=== PATIENT | male | born 1960 | race Caucasian/White ===

== ENCOUNTER → 2018-08-27 | Day surgery (SDC) | payer OTHER ==
[~2018-08-27] MED LIST: ALDACTONE100 MG PO; FENTANYL CITRATE/PF 100MCG/2 ML INJ ONE; FUROSEMIDE40 MG PO; MIDAZOLAM HCL 2 MG/2 ML VIAL ONE; PROPOFOL IV EMULSION 10 MG/ML 50 ML VIAL ONE; PROPRANOLOL HCL40 MG PO
--- OUTSIDE RECORDS SUMMARY | 2018-08-27 07:39 | XMS REPORT | Clinical Summary ---
Author Author [place] [facility] Address Unknown Phone Unavailable Care Team Providers Care Cheese Pancake Roller Name Role Phone Edgar Le MD PCP Allergies No Known Allergies Medications End Date Status Medication Sig Dispensed Refills Start Date Active amLODIPine (NORVASC) 5 mg TK 1 T PO QD 0 tablet 7 Active Problems Not on file Encounters Care Team Description Date Type Specialty Malcolm Botello MD Canceled (Insurance Denied/Termed) 05/31/2018 Hospital Radiology Encounter Malcolm Botello MD Other ascites (Primary Dx) 05/27/2018 Transcribe Access Orders after 08/26/2017 Family History Medical History Relation Name Comments Hyperlipidemia Father Hypertension Father Hyperlipidemia Mother Hypertension Mother Relation Name Status Comments Father Alive Mother Alive Social History Date Tobacco Use Types Packs/Day Years Used Never Smoker Smokeless Tobacco: Never Used Alcohol Use Drinks/Week oz/Week Comments Yes occ Sex Assigned at Date Recorded Not on file Industry Job Start Date Occupation Not on file Not on file Not on file Travel End Travel History Travel Start No recent travel history available. Last Filed Vital Signs Not on file Plan of Treatment Health Maintenance Due Date Last Done Comments COLON CANCER SCREENING 2012 SHINGLES VACCINES (#1) 2012 INFLUENZA VACCINE 12/12/2018 Results Not on fileafter 08/26/2017 Insurance Payer Benefit Subscriber ID Type Phone Address Plan / Group AMER NATL AMER NATL xxxxxxxxx Commercial Advance Directives Patient has advance care planning documents on file. For more information, aiyana bryan contact: Ramón Fagan [address] [place] [address]
--- OUTSIDE RECORDS SUMMARY | 2018-08-27 07:39 | XMS REPORT ---
Author Author [facility] Address Unknown Phone Unavailable Care Team Providers Care Strings Teacher Name Role Phone Unavailable Unavailable Payers Payer Name Policy Type Policy Number Effective Date Expiration Date Problems This patient has no known problems. Allergies, Adverse Reactions, Alerts Allergy Name Allergy Type Status Severity Reaction(s) Onset Date Inactive Date Treating Clinician Comments No Known Allergies DA Active U 2018-07-23 00:00:00 No Known Allergies DA Active U 2018-05-31 00:00:00 Medications This patient has no known medications. Results Test Description Test Time Test Comments Text Results Atomic Results Result Comments BODY FLUID CELL CT/DIFF 2018-07-25 10:55:00 FLUID SOURCE (test code=SOURCEFL) ASCITES FLD FLUID COLOR (test code=COLFL) YELLOW COLORLESS FLUID APPEARANCE (test code=APPFL) HAZY FLUID WBC AUTO (test code=WBCFLA) 730 cells/uL FLUID RBC AUTO (test code=RBCFLA) 3000 cells/uL FLUID TOTAL CELLS (test code=TCFL) 779 cells/uL >0 Fluid WBC RBC PMN% MN%Type cells/uL cells/uL CSF (0-5) n/a (2+/-4) (90+/-20)Peritoneal n/a n/a n/a n/aPleural n/a n/a n/a n/aSynovial <200 n/a <25% <75% CSF (0-30) n/a (4+/-4) (90+/-20) FLUID POLY (test code=POLYFL) 13.0 % FLUID LYMPHOCYTE (test code=LYMPHFL) 61.0 % FLUID MACROPHAGE (test code=MACFL) 26.0 % TOTAL CELLS COUNTED ON DIFF (test code=TOTCELLFL) 100 cells REVIEWED BY (test code=REVIEW) FEDERICO DAMON PATHOLOGIST SPECIMEN COMMENTS: ASCITES FLUIDBODY FLUID [id number] 10:55:00* Test Item Value Reference Range Comments BODY FLUID ALBUMIN (test code=ALBF) 1.8 gram/dL SPECIMEN COMMENTS: ASCITES FLUIDASCITES FLD [id number] 10:55:00* Test Item Value Reference Range Comments ASCITES FLD PROTEIN (test code=PROTAS) 3.0 gram/dL SPECIMEN COMMENTS: ASCITES FLUID- SP PARACENTESIS W [id number] 16:10:00 Name: KIMO STEELE [facility] SP : 1960 Age/S: 58 / M [address] Unit #: [id number] Loc: [place] [address] Phys: Dylon Harrington MD Acct: [id number] Dis Date: Status: REG [facility] PHONE #: Exam Date: 07/23/2018 1200 FAX #: [phone] Reason: EXAMS: CPT CODE: [id number] SP PARACENTESIS W IMAGE [id number] Fluoro Time: 0 DAP (Gy m2 ): 0 Air Kerma (mGy): 0 REASON FOR EXAM: Ascites EXAM ORDER DATE: 07/23/2018 11:25 AM PROCEDURE: Ultrasound guided paracentesis CPT code: 83578, 12963 FINDINGS: After informed consent was obtained, the patient was brought to special procedures. The abdomen was prepped and draped in the usual fashion. All e lements of maximal sterile barrier technique were followed. Diagnostic ult rasound showed mild ascites. Images of the ascites was submitted to PACS. 2% local lidocaine was given for local anesthetic. Under real time ultra sound guidance, an 18 gauge needle was advanced into the abdomen. A guide wire was inserted and an 8 Slovak drainage catheter was inserted in the ab dominal cavity. 2.2 L of fluid obtained. The catheter was removed and hemo stasis obtained. Samples were submitted for lab analysis. ME DICATIONS: None COMPLICATIONS: None. Blood loss: les s than 5cc. IMPRESSION: 2.2 L of fluid removed from the abdomen. at 1610 Reported and signed by: Dylon Harrington M.D. CC: Munir Botello; Dylon Harrington MD Technologist: Twyla WRIGHT(R) Trnscb Date/Time: 07/23/2018 (1610) CaseyL Orig Print D/T: S: 07/23/2018 (4469) PAGE 1 Signed Report BODY FLUID CELL CT/DIFF 2018-07-23 15:04:00* Test Item Value Reference Range Comments FLUID SOURCE (test code=SOURCEFL) ASCITES FLD FLUID COLOR (test code=COLFL) YELLOW COLORLESS FLUID APPEARANCE (test code=APPFL) HAZY FLUID WBC AUTO (test code=WBCFLA) 730 cells/uL FLUID RBC AUTO (test code=RBCFLA) 3000 cells/uL FLUID TOTAL CELLS (test code=TCFL) 779 cells/uL >0 Fluid WBC RBC PMN% MN%Type cells/uL cells/uL CSF (0-5) n/a (2+/-4) (90+/-20)Peritoneal n/a n/a n/a n/aPleural n/a n/a n/a n/aSynovial <200 n/a <25% <75% CSF (0-30) n/a (4+/-4) (90+/-20) FLUID POLY (test code=POLYFL) 13.0 % FLUID LYMPHOCYTE (test code=LYMPHFL) 61.0 % FLUID MACROPHAGE (test code=MACFL) 26.0 % TOTAL CELLS COUNTED ON DIFF (test code=TOTCELLFL) 100 cells REVIEWED BY (test code=REVIEW) PATHOLOGIST SPECIMEN COMMENTS: ASCITES FLUIDBODY FLUID [id number] 15:04:00* Test Item Value Reference Range Comments BODY FLUID ALBUMIN (test code=ALBF) 1.8 gram/dL SPECIMEN COMMENTS: ASCITES FLUIDASCITES FLD [id number] 15:04:00* Test Item Value Reference Range Comments ASCITES FLD PROTEIN (test code=PROTAS) 3.0 gram/dL SPECIMEN COMMENTS: ASCITES FLUIDBODY FLUID CELL [id number] 14:46:00* Test Item Value Reference Range Comments FLUID SOURCE (test code=SOURCEFL) ASCITES FLD FLUID COLOR (test code=COLFL) YELLOW COLORLESS FLUID APPEARANCE (test code=APPFL) HAZY FLUID WBC AUTO (test code=WBCFLA) 730 cells/uL FLUID RBC AUTO (test code=RBCFLA) 3000 cells/uL FLUID TOTAL CELLS (test code=TCFL) 779 cells/uL >0 Fluid WBC RBC PMN% MN%Type cells/uL cells/uL CSF (0-5) n/a (2+/-4) (90+/-20)Peritoneal n/a n/a n/a n/aPleural n/a n/a n/a n/aSynovial <200 n/a <25% <75% CSF (0-30) n/a (4+/-4) (90+/-20) TOTAL CELLS COUNTED ON DIFF (test code=TOTCELLFL) cells REVIEWED BY (test code=REVIEW) PATHOLOGIST SPECIMEN COMMENTS: ASCITES FLUIDBODY FLUID [id number] 14:46:00* Test Item Value Reference Range Comments BODY FLUID ALBUMIN (test code=ALBF) 1.8 gram/dL SPECIMEN COMMENTS: ASCITES FLUIDASCITES FLD [id number] 14:46:00* Test Item Value Reference Range Comments ASCITES FLD PROTEIN (test code=PROTAS) 3.0 gram/dL SPECIMEN COMMENTS: ASCITES [id number] 14:34:00* Test Item Value Reference Range Comments GLUBED (test code=GLUBED) 96 mg/dL 74-106 Performed by certified continuous drier operator at [facility] BODY FLUID CELL [id number] 13:50:00* Test Item Value Reference Range Comments FLUID SOURCE (test code=SOURCEFL) ASCITES FLD FLUID COLOR (test code=COLFL) YELLOW COLORLESS FLUID APPEARANCE (test code=APPFL) HAZY FLUID WBC AUTO (test code=WBCFLA) 730 cells/uL FLUID RBC AUTO (test code=RBCFLA) 3000 cells/uL FLUID TOTAL CELLS (test code=TCFL) 779 cells/uL >0 Fluid WBC RBC PMN% MN%Type cells/uL cells/uL CSF (0-5) n/a (2+/-4) (90+/-20)Peritoneal n/a n/a n/a n/aPleural n/a n/a n/a n/aSynovial <200 n/a <25% <75% CSF (0-30) n/a (4+/-4) (90+/-20) TOTAL CELLS COUNTED ON DIFF (test code=TOTCELLFL) cells REVIEWED BY (test code=REVIEW) PATHOLOGIST SPECIMEN COMMENTS: ASCITES FLUIDBODY FLUID [id number] 13:50:00* Test Item Value Reference Range Comments BODY FLUID ALBUMIN (test code=ALBF) gram/dL SPECIMEN COMMENTS: ASCITES FLUIDASCITES FLD [id number] 13:50:00* Test Item Value Reference Range Comments ASCITES FLD PROTEIN (test code=PROTAS) 3.0 gram/dL SPECIMEN COMMENTS: ASCITES FLUIDBODY FLUID CELL [id number] 13:45:00* Test Item Value Reference Range Comments FLUID SOURCE (test code=SOURCEFL) ASCITES FLD FLUID COLOR (test code=COLFL) YELLOW COLORLESS FLUID APPEARANCE (test code=APPFL) HAZY FLUID WBC AUTO (test code=WBCFLA) 730 cells/uL FLUID RBC AUTO (test code=RBCFLA) 3000 cells/uL FLUID TOTAL CELLS (test code=TCFL) 779 cells/uL >0 Fluid WBC RBC PMN% MN%Type cells/uL cells/uL CSF (0-5) n/a (2+/-4) (90+/-20)Peritoneal n/a n/a n/a n/aPleural n/a n/a n/a n/aSynovial <200 n/a <25% <75% CSF (0-30) n/a (4+/-4) (90+/-20) TOTAL CELLS COUNTED ON DIFF (test code=TOTCELLFL) cells REVIEWED BY (test code=REVIEW) PATHOLOGIST SPECIMEN COMMENTS: ASCITES FLUIDBODY FLUID [id number] 13:45:00* Test Item Value Reference Range Comments BODY FLUID ALBUMIN (test code=ALBF) gram/dL SPECIMEN COMMENTS: ASCITES FLUIDASCITES FLD [id number] 13:45:00* Test Item Value Reference Range Comments ASCITES FLD PROTEIN (test code=PROTAS) gram/dL SPECIMEN COMMENTS: ASCITES FLUIDBODY FLUID CELL [id number] 13:44:00* Test Item Value Reference Range Comments FLUID SOURCE (test code=SOURCEFL) FLUID COLOR (test code=COLFL) COLORLESS FLUID APPEARANCE (test code=APPFL) FLUID WBC (test code=WBCFL) per mm3 0-150 FLUID WBC AUTO (test code=WBCFLA) 730 cells/uL FLUID RBC (test code=RBCFL) per mm3 0-50 FLUID RBC AUTO (test code=RBCFLA) 3000 cells/uL FLUID TOTAL CELLS (test code=TCFL) 779 cells/uL >0 Fluid WBC RBC PMN% MN%Type cells/uL cells/uL CSF (0-5) n/a (2+/-4) (90+/-20)Peritoneal n/a n/a n/a n/aPleural n/a n/a n/a n/aSynovial <200 n/a <25% <75% CSF (0-30) n/a (4+/-4) (90+/-20) TOTAL CELLS COUNTED ON DIFF (test code=TOTCELLFL) cells REVIEWED BY (test code=REVIEW) PATHOLOGIST SPECIMEN COMMENTS: ASCITES FLUIDBODY FLUID [id number] 13:44:00* Test Item Value Reference Range Comments BODY FLUID ALBUMIN (test code=ALBF) gram/dL SPECIMEN COMMENTS: ASCITES FLUIDASCITES FLD [id number] 13:44:00* Test Item Value Reference Range Comments ASCITES FLD PROTEIN (test code=PROTAS) gram/dL SPECIMEN COMMENTS: ASCITES FLUIDPROTHROMBIN [id number] 08:12:00* Test Item Value Reference Range Comments PROTHROMBIN TIME PATIENT (test code=PTP) 12.9 seconds 9.0-14.0 INTERNATIONAL NORMAL RATIO (test code=INR) 1.1 0.8-1.2 The therapeutic range for oral anticoagulant therapy formost indications is an international normalized ratio (INR)of between 2.0 and 3.0. The recommended therapeutic INRrange for various clinical situations is listed below: Clinical Situation INR range Pulmonary e mbolism treatment (2.0-3.0)Venous thrombosis treatmentVenous thrombosis prophylaxis (high risk surgery)Prevention of systemic embolism from: Acute myocardial infarction Valvular heart disease Atrial fibrillation Mechanical prosthetic heart valves (2.5-3.5) THROMBOPLASTIN TIME [id number] 08:12:00* Test Item Value Reference Range Comments THROMBOPLASTIN TIME PARTIAL (test code=PTT) 29.6 seconds 25.0-36.5 PLATELET [id number] 08:03:00* Test Item Value Reference Range Comments PLATELET COUNT (test code=PLT) 198 K/mm3 150-[id number] 09:25:00* Test Item Value Reference Range Comments FLUID SOURCE (test code=SOURCEFL) ASCITES FLD FLUID COLOR (test code=COLFL) YELLOW COLORLESS FLUID APPEARANCE (test code=APPFL) CLEAR FLUID WBC AUTO (test code=WBCFLA) 288 cells/uL FLUID RBC AUTO (test code=RBCFLA) 0 cells/uL FLUID TOTAL CELLS (test code=TCFL) 293 cells/uL >0 Fluid WBC RBC PMN% MN%Type cells/uL cells/uL CSF (0-5) n/a (2+/-4) (90+/-20)Peritoneal n/a n/a n/a n/aPleural n/a n/a n/a n/aSynovial <200 n/a <25% <75% CSF (0-30) n/a (4+/-4) (90+/-20) FLUID POLY (test code=POLYFL) 16.4 % FLUID LYMPHOCYTE (test code=LYMPHFL) 59.1 % FLUID EOSINOPHIL (test code=EOSFL) 0.0 % FLUID BASOPHIL (test code=BASOFL) 0.0 % FLUID MACROPHAGE (test code=MACFL) 19.1 % FLUID OTHER CELL (test code=OTHERFL) 5.4 % TOTAL CELLS COUNTED ON DIFF (test code=TOTCELLFL) 110 cells REVIEWED BY (test code=REVIEW) PATHOLOGIST Reviewed by Pathologist, REVIEWED BY FEDERICO DICKINSON M.D.06/04/18REVIEWED SPECIMEN COMMENTS: ASCITES FLUIDFLUID [id number] 09:25:00* Test Item Value Reference Range Comments FLUID PH (test code=PHFL) 7.0 6.8-7.6 SPECIMEN COMMENTS: ASCITES FLUIDFLUID [id number] 09:25:00* Test Item Value Reference Range Comments FLUID GLUCOSE (test code=GLUFL) 115 mg/dL SPECIMEN COMMENTS: ASCITES FLUIDFLUID [id number] 09:25:00* Test Item Value Reference Range Comments FLUID PROTEIN (test code=PROTFL) 1.5 gram/dL SPECIMEN COMMENTS: ASCITES FLUIDFLUID [id number] 09:25:00* Test Item Value Reference Range Comments FLUID LDH (test code=LDHFL) 39 IUnit/L SPECIMEN COMMENTS: ASCITES FLUIDBODY FLUID CELL [id number] 16:42:00* Test Item Value Reference Range Comments FLUID SOURCE (test code=SOURCEFL) ASCITES FLD FLUID COLOR (test code=COLFL) YELLOW COLORLESS FLUID APPEARANCE (test code=APPFL) CLEAR FLUID WBC AUTO (test code=WBCFLA) 288 cells/uL FLUID RBC AUTO (test code=RBCFLA) 0 cells/uL FLUID TOTAL CELLS (test code=TCFL) 293 cells/uL >0 Fluid WBC RBC PMN% MN%Type cells/uL cells/uL CSF (0-5) n/a (2+/-4) (90+/-20)Peritoneal n/a n/a n/a n/aPleural n/a n/a n/a n/aSynovial <200 n/a <25% <75% CSF (0-30) n/a (4+/-4) (90+/-20) FLUID POLY (test code=POLYFL) 16.4 % FLUID LYMPHOCYTE (test code=LYMPHFL) 59.1 % FLUID EOSINOPHIL (test code=EOSFL) 0.0 % FLUID BASOPHIL (test code=BASOFL) 0.0 % FLUID MACROPHAGE (test code=MACFL) 19.1 % FLUID OTHER CELL (test code=OTHERFL) 5.4 % TOTAL CELLS COUNTED ON DIFF (test code=TOTCELLFL) 110 cells REVIEWED BY (test code=REVIEW) PATHOLOGIST SPECIMEN COMMENTS: ASCITES FLUIDFLUID [id number] 16:42:00* Test Item Value Reference Range Comments FLUID PH (test code=PHFL) 7.0 6.8-7.6 SPECIMEN COMMENTS: ASCITES FLUIDFLUID [id number] 16:42:00* Test Item Value Reference Range Comments FLUID GLUCOSE (test code=GLUFL) 115 mg/dL SPECIMEN COMMENTS: ASCITES FLUIDFLUID [id number] 16:42:00* Test Item Value Reference Range Comments FLUID PROTEIN (test code=PROTFL) 1.5 gram/dL SPECIMEN COMMENTS: ASCITES FLUIDFLUID [id number] 16:42:00* Test Item Value Reference Range Comments FLUID LDH (test code=LDHFL) 39 IUnit/L SPECIMEN COMMENTS: ASCITES FLUIDBODY FLUID CELL [id number] 16:36:00* Test Item Value Reference Range Comments FLUID SOURCE (test code=SOURCEFL) ASCITES FLD FLUID COLOR (test code=COLFL) YELLOW COLORLESS FLUID APPEARANCE (test code=APPFL) CLEAR FLUID WBC AUTO (test code=WBCFLA) 288 cells/uL FLUID RBC AUTO (test code=RBCFLA) 0 cells/uL FLUID TOTAL CELLS (test code=TCFL) 293 cells/uL >0 Fluid WBC RBC PMN% MN%Type cells/uL cells/uL CSF (0-5) n/a (2+/-4) (90+/-20)Peritoneal n/a n/a n/a n/aPleural n/a n/a n/a n/aSynovial <200 n/a <25% <75% CSF (0-30) n/a (4+/-4) (90+/-20) FLUID POLY (test code=POLYFL) 16.4 % FLUID LYMPHOCYTE (test code=LYMPHFL) 59.1 % FLUID EOSINOPHIL (test code=EOSFL) 0.0 % FLUID BASOPHIL (test code=BASOFL) 0.0 % FLUID MACROPHAGE (test code=MACFL) 19.1 % FLUID OTHER CELL (test code=OTHERFL) 5.4 % TOTAL CELLS COUNTED ON DIFF (test code=TOTCELLFL) cells REVIEWED BY (test code=REVIEW) PATHOLOGIST SPECIMEN COMMENTS: ASCITES FLUIDFLUID [id number] 16:36:00* Test Item Value Reference Range Comments FLUID PH (test code=PHFL) 7.0 6.8-7.6 SPECIMEN COMMENTS: ASCITES FLUIDFLUID [id number] 16:36:00* Test Item Value Reference Range Comments FLUID GLUCOSE (test code=GLUFL) 115 mg/dL SPECIMEN COMMENTS: ASCITES FLUIDFLUID [id number] 16:36:00* Test Item Value Reference Range Comments FLUID PROTEIN (test code=PROTFL) 1.5 gram/dL SPECIMEN COMMENTS: ASCITES FLUIDFLUID [id number] 16:36:00* Test Item Value Reference Range Comments FLUID LDH (test code=LDHFL) 39 IUnit/L SPECIMEN COMMENTS: ASCITES FLUID- SP PARACENTESIS W [id number] 14:18:00 Name: KIMO STEELE [facility] SP : 1960 Age/S: 57 / M [address] [facility] Unit #: [id number] Loc: [place] [address] Phys: Ruben Harrison MD Acct: [id number] Di s Date: Status: REG ARC PHONE #: Exam Date: 06/03/2018 1023 FAX #: [phone] Reason: EXAMS: CPT CODE: [id number] SP PARACENTESIS W IMAGE [id number] Fluoro Time: 0 DAP (Gy m2 ): 0 Air Kerma (mGy): 0 REASON FOR EXAM: Ascites EXAM ORDER DATE: 06/03/2018 9:54 AM PROCEDURE: Ultrasound guided paracentesis CPT code: 08457, 46827 FINDINGS: After informed consent was obtained, the patient was brought to [facility]. The abdomen was prepped and draped in the usual fashion. All el ements of maximal sterile barrier technique were followed. Diagnostic ultr asound showed mild ascites. Images of the ascites was submitted to PACS. 2% local lidocaine was given for local anesthetic. Under real time ultras ound guidance, an 18 gauge needle was advanced into the abdomen. A guide w dez was inserted and an 8 Slovak drainage catheter was inserted in the abd ominal cavity. 5.9 L of fluid obtained. The catheter was removed and hemos tasis obtained. Samples were submitted for lab analysis. MED ICATIONS: None COMPLICATIONS: None. Blood loss: less than 5cc. IMPRESSION: 5.9 L of fluid removed from the abdomen. Electronically Signed by Roopa Shepherd 06/03/2018 at 1418 Reported and signed by: Dylon Harrington M.D. CC: Malcolm Botello; Sivakumar Harrison MD Technologist: VIN WRIGHT(R) Trnscb Date/Time: 06/03/2018 (5135) CaseyL Orig Print D/T: S: 06/03/2018 (7024) PAGE 1 Signed Report BODY FLUID CELL CT/DIFF 2018-06-03 13:44:00* Test Item Value Reference Range Comments FLUID SOURCE (test code=SOURCEFL) ASCITES FLD FLUID COLOR (test code=COLFL) YELLOW COLORLESS FLUID APPEARANCE (test code=APPFL) CLEAR FLUID WBC AUTO (test code=WBCFLA) 288 cells/uL FLUID RBC AUTO (test code=RBCFLA) 0 cells/uL FLUID TOTAL CELLS (test code=TCFL) 293 cells/uL >0 Fluid WBC RBC PMN% MN%Type cells/uL cells/uL CSF (0-5) n/a (2+/-4) (90+/-20)Peritoneal n/a n/a n/a n/aPleural n/a n/a n/a n/aSynovial <200 n/a <25% <75% CSF (0-30) n/a (4+/-4) (90+/-20) TOTAL CELLS COUNTED ON DIFF (test code=TOTCELLFL) cells REVIEWED BY (test code=REVIEW) PATHOLOGIST SPECIMEN COMMENTS: ASCITES FLUIDFLUID [id number] 13:44:00* Test Item Value Reference Range Comments FLUID PH (test code=PHFL) 7.0 6.8-7.6 SPECIMEN COMMENTS: ASCITES FLUIDFLUID [id number] 13:44:00* Test Item Value Reference Range Comments FLUID GLUCOSE (test code=GLUFL) 115 mg/dL SPECIMEN COMMENTS: ASCITES FLUIDFLUID [id number] 13:44:00* Test Item Value Reference Range Comments FLUID PROTEIN (test code=PROTFL) 1.5 gram/dL SPECIMEN COMMENTS: ASCITES FLUIDFLUID [id number] 13:44:00* Test Item Value Reference Range Comments FLUID LDH (test code=LDHFL) 39 IUnit/L SPECIMEN COMMENTS: ASCITES FLUIDBODY FLUID CELL [id number] 13:39:00* Test Item Value Reference Range Comments FLUID SOURCE (test code=SOURCEFL) ASCITES FLD FLUID COLOR (test code=COLFL) YELLOW COLORLESS FLUID APPEARANCE (test code=APPFL) CLEAR FLUID WBC AUTO (test code=WBCFLA) 288 cells/uL FLUID RBC AUTO (test code=RBCFLA) 0 cells/uL FLUID TOTAL CELLS (test code=TCFL) 293 cells/uL >0 Fluid WBC RBC PMN% MN%Type cells/uL cells/uL CSF (0-5) n/a (2+/-4) (90+/-20)Peritoneal n/a n/a n/a n/aPleural n/a n/a n/a n/aSynovial <200 n/a <25% <75% CSF (0-30) n/a (4+/-4) (90+/-20) TOTAL CELLS COUNTED ON DIFF (test code=TOTCELLFL) cells REVIEWED BY (test code=REVIEW) PATHOLOGIST SPECIMEN COMMENTS: ASCITES FLUIDFLUID [id number] 13:39:00* Test Item Value Reference Range Comments FLUID PH (test code=PHFL) 7.0 6.8-7.6 SPECIMEN COMMENTS: ASCITES FLUIDFLUID [id number] 13:39:00* Test Item Value Reference Range Comments FLUID GLUCOSE (test code=GLUFL) 115 mg/dL SPECIMEN COMMENTS: ASCITES FLUIDFLUID [id number] 13:39:00* Test Item Value Reference Range Comments FLUID PROTEIN (test code=PROTFL) gram/dL SPECIMEN COMMENTS: ASCITES FLUIDFLUID [id number] 13:39:00* Test Item Value Reference Range Comments FLUID LDH (test code=LDHFL) IUnit/L SPECIMEN COMMENTS: ASCITES FLUIDBODY FLUID CELL [id number] 13:33:00* Test Item Value Reference Range Comments FLUID SOURCE (test code=SOURCEFL) ASCITES FLD FLUID COLOR (test code=COLFL) YELLOW COLORLESS FLUID APPEARANCE (test code=APPFL) CLEAR FLUID WBC AUTO (test code=WBCFLA) 288 cells/uL FLUID RBC AUTO (test code=RBCFLA) 0 cells/uL FLUID TOTAL CELLS (test code=TCFL) 293 cells/uL >0 Fluid WBC RBC PMN% MN%Type cells/uL cells/uL CSF (0-5) n/a (2+/-4) (90+/-20)Peritoneal n/a n/a n/a n/aPleural n/a n/a n/a n/aSynovial <200 n/a <25% <75% CSF (0-30) n/a (4+/-4) (90+/-20) TOTAL CELLS COUNTED ON DIFF (test code=TOTCELLFL) cells REVIEWED BY (test code=REVIEW) PATHOLOGIST SPECIMEN COMMENTS: ASCITES FLUIDFLUID [id number] 13:33:00* Test Item Value Reference Range Comments FLUID PH (test code=PHFL) 7.0 6.8-7.6 SPECIMEN COMMENTS: ASCITES FLUIDFLUID [id number] 13:33:00* Test Item Value Reference Range Comments FLUID GLUCOSE (test code=GLUFL) mg/dL SPECIMEN COMMENTS: ASCITES FLUIDFLUID [id number] 13:33:00* Test Item Value Reference Range Comments FLUID PROTEIN (test code=PROTFL) gram/dL SPECIMEN COMMENTS: ASCITES FLUIDFLUID [id number] 13:33:00* Test Item Value Reference Range Comments FLUID LDH (test code=LDHFL) IUnit/L SPECIMEN COMMENTS: ASCITES FLUIDBODY FLUID CELL [id number] 13:31:00* Test Item Value Reference Range Comments FLUID SOURCE (test code=SOURCEFL) FLUID COLOR (test code=COLFL) COLORLESS FLUID APPEARANCE (test code=APPFL) FLUID WBC (test code=WBCFL) per mm3 0-150 FLUID WBC AUTO (test code=WBCFLA) 288 cells/uL FLUID RBC (test code=RBCFL) per mm3 0-50 FLUID RBC AUTO (test code=RBCFLA) 0 cells/uL FLUID TOTAL CELLS (test code=TCFL) 293 cells/uL >0 Fluid WBC RBC PMN% MN%Type cells/uL cells/uL CSF (0-5) n/a (2+/-4) (90+/-20)Peritoneal n/a n/a n/a n/aPleural n/a n/a n/a n/aSynovial <200 n/a <25% <75% CSF (0-30) n/a (4+/-4) (90+/-20) TOTAL CELLS COUNTED ON DIFF (test code=TOTCELLFL) cells REVIEWED BY (test code=REVIEW) PATHOLOGIST SPECIMEN COMMENTS: ASCITES FLUIDFLUID [id number] 13:31:00* Test Item Value Reference Range Comments FLUID PH (test code=PHFL) 6.8-7.6 SPECIMEN COMMENTS: ASCITES FLUIDFLUID [id number] 13:31:00* Test Item Value Reference Range Comments FLUID GLUCOSE (test code=GLUFL) mg/dL SPECIMEN COMMENTS: ASCITES FLUIDFLUID [id number] 13:31:00* Test Item Value Reference Range Comments FLUID PROTEIN (test code=PROTFL) gram/dL SPECIMEN COMMENTS: ASCITES FLUIDFLUID [id number] 13:31:00* Test Item Value Reference Range Comments FLUID LDH (test code=LDHFL) IUnit/L SPECIMEN COMMENTS: ASCITES FLUIDPROTHROMBIN [id number] 12:52:00* Test Item Value Reference Range Comments PROTHROMBIN TIME PATIENT (test code=PTP) 13.3 seconds 9.0-14.0 INTERNATIONAL NORMAL RATIO (test code=INR) 1.1 0.8-1.2 The therapeutic range for oral anticoagulant therapy formost indications is an international normalized ratio (INR)of between 2.0 and 3.0. The recommended therapeutic INRrange for various clinical situations is listed below: Clinical Situation INR range Pulmonary e mbolism treatment (2.0-3.0)Venous thrombosis treatmentVenous thrombosis prophylaxis (high risk surgery)Prevention of systemic embolism from: Acute myocardial infarction Valvular heart disease Atrial fibrillation Mechanical prosthetic heart valves (2.5-3.5) THROMBOPLASTIN TIME [id number] 12:52:00* Test Item Value Reference Range Comments THROMBOPLASTIN TIME PARTIAL (test code=PTT) 29.6 seconds 25.0-36.5 PLATELET [id number] 12:40:00* Test Item Value Reference Range Comments PLATELET COUNT (test code=PLT) 250 K/mm3 150-450 - US ABDOMEN [id number] 10:13:00 Name: KIMO STEELE Pt. [facility] : 1960 Age/S: 57 / M [address] [facility] Unit #: [id number] Loc: [place] [address] Phys: Maclolm Botello MD Acct: [id number] Dis Date: Status: REG CLI PHONE #: [phone] Exam Date: 05/31/2018 0958 FAX #: [phone] Reason: R18.8 EXAMS: CPT CODE: [id number] US ABDOMEN COMPLETE 04119 HISTORY: R18.8. COMPARISON: None available. The hepatic parenchyma is hyperechogenic and slightly nodular and shrunken which limits evaluation for intrahepatic mass however no discrete lesions this may suggest cirrhosis. The liver measured 10.8 cm in length. No intra or extrahepatic biliary ductal dilatation. CBD is normal at 2.8 mm. Main portal vein is patent. To and fro flow noted within the main portal vein. Gallbladder is without gallstones. No pericholecystic fluid or wall thickening. Small ascites. Kidneys are free from hydronephrosis and calyceal stones. Normal echogenicity and texture. Right kidney measuring 11.4 cm in length. Left kidney measured 12 cm in length. Spleen is not enlarged at 13.4 cm in length. Visualized portions of the IVC, aorta and pancreas are normal however imaged incompletely. IMPRESSION: Small nodular shrunken cirrhotic liver without discrete mass with small ascites. No splenomegaly. No gallstones. To and fro flow within the main portal vein. at 1013 Reported and signed by: Darinel Arreola M.D. CC: Malcolm Botello Technologist: Jessica Patel(S)(ARRT) Trnscb Date/Time: 05/31/2018 (1013) [email or web address] Orig Print D/T: S: 05/31/2018 (1016) Probe: PAGE 1 Signed Report
[2018-08-27 14:25] VITALS: BP 158/87
== END | disposition home or self-care (01) ==
LOC: OR 07:36
PROVIDERS: ATTEND Internal Medicine Gastroenterology
DX: K74.60 Unspecified cirrhosis of liver (principal); I85.10 Secondary esophageal varices without bleeding; K29.50 Unspecified chronic gastritis without bleeding; K44.9 Diaphragmatic hernia without obstruction or gangrene; L29.9 Pruritus, unspecified; I10 Essential (primary) hypertension; J90 Pleural effusion, not elsewhere classified; D50.9 Iron deficiency anemia, unspecified; Z83.79 Family history of other diseases of the digestive system
CPT/HCPCS: 43239; 43244; J2250; J2704; 43255

== ENCOUNTER → 2018-09-17 | Day surgery (SDC) | payer OTHER ==
[~2018-09-17] MED LIST changes: +ANTACID PO; -FENTANYL CITRATE/PF 100MCG/2 ML INJ ONE
--- OUTSIDE RECORDS SUMMARY | 2018-09-17 09:38 | XMS REPORT | Clinical Summary ---
Author Author [facility] Address Unknown Phone Unavailable Care Team Providers Care Dewaxer Name Role Phone Edgar Le MD PCP [...] (Primary Dx) 05/27/2018 Transcribe Access Orders after 09/16/2017 Family History Medical History Relation Name Comments [...] INFLUENZA VACCINE 12/12/2018 Results Not on fileafter 09/16/2017 Insurance Payer Benefit Subscriber ID Type Phone Address Plan / Group AMER NATL AMER NATL xxxxxxxxx Commercial Advance Directives Patient has advance care planning documents on file. For more information, aiyana bryan contact: Ramón Fagan [address] [place] [address]
[2018-09-17 14:45] VITALS: BP 128/64
== END | disposition home or self-care (01) ==
LOC: OR 09:35
PROVIDERS: ATTEND Internal Medicine Gastroenterology
DX: K74.60 Unspecified cirrhosis of liver (principal); K29.00 Acute gastritis without bleeding; I85.10 Secondary esophageal varices without bleeding; R18.8 Other ascites; K44.9 Diaphragmatic hernia without obstruction or gangrene; K21.9 Gastro-esophageal reflux disease without esophagitis; D50.9 Iron deficiency anemia, unspecified; J90 Pleural effusion, not elsewhere classified; L29.9 Pruritus, unspecified; I10 Essential (primary) hypertension; Z80.0 Family history of malignant neoplasm of digestive organs
CPT/HCPCS: 43239; 93005; J2250; J2704